=== PATIENT | female | born 1970 | race Caucasian/White ===

== ENCOUNTER 2025-06-26 22:45 | Inpatient (IN) | payer OTHER, MEDICAID ==
[~2025-06-26] VITALS: Ht 162.6 cm; Wt 75.3 kg
[2025-06-26 22:48] VITALS: O2SAT 95
[2025-06-26] MEDS ORDERED: ESCI5SOL2 PO (23:02)
[2025-06-26] MEDS ORDERED: CARB-214 PO (23:02)
[2025-06-26] MEDS ORDERED: ARIP10TA86 PO (23:02)
[2025-06-26] MEDS ORDERED: PHEN50TA MT (23:02)
[2025-06-26] MEDS ORDERED: LEVE100023 MT (23:02)
[2025-06-27] MEDS: SODIUM CHLORIDE 0.9% 1,000 ML IV ONE (00:03)
[2025-06-27] MEDS: LEVETIRACETAM 1000MG PREMIX 100 ML IV ONE (00:03)
[2025-06-27 00:04] LABS: BASOPHILS % 0.3 % (0.0-2.0); EOSINOPHILS % 0.3 % (0.0-5.0); HEMATOCRIT. 37.8 % (36.0-48.0); HEMOGLOBIN. 12.5 g/dL (12.0-16.0); LYMPHOCYTES % 26.2 % (20.0-50.0); MEAN PLATELET VOLUME 7.5 fl (7.4-10.4); MONOCYTES % 6.8 % (2.0-8.0); NEUTROPHILS % 66.4 % (40.0-76.0); PLATELET 248 x1000/uL (130-400); RED BLOOD CELL COUNT 3.99 mill/uL (4.2-5.4); RED CELL DISTRIBUTION WIDTH 13.2 % (11.6-14.6)
[2025-06-27] MEDS: ONDANSETRON HCL 4MG/2ML INJ IV ONE (00:04)
[2025-06-27 00:15] LABS: CARBAMAZEPINE 4.5 ug/mL (4-12); CREATININE 0.6 mg/dL (0.6-1.0); UREA NITROGEN BLOOD 11 mg/dL (9-23)
[2025-06-27 00:16] LABS: PHENYTOIN 2.9 ug/mL (10-20)
[2025-06-27 00:17] LABS: ASPARTATE AMINOTRANSFERASE 18 IU/L (<34); BILIRUBIN DIRECT < 0.1 mg/dL (<=3.0); PROTEIN TOTAL 7.1 g/dL (6.0-8.3)
[2025-06-27 00:18] LABS: BILIRUBIN TOTAL 0.3 mg/dL (0.1-1.0)
[2025-06-27 00:23] LABS: VALPROIC ACID < 3.0 ug/mL (50-100)
[2025-06-27 00:32] LABS: CLARITY URINE CLEAR (CLEAR); COLOR URINE YELLOW (YELLOW); GLUCOSE URINE NEGATIVE (NEGATIVE); KETONES URINE NEGATIVE (NEGATIVE); LEUKOCYTE ESTERASE URINE NEGATIVE (NEGATIVE); NITRITE URINE NEGATIVE (NEGATIVE); OCCULT BLOOD URINE NEGATIVE (NEGATIVE); PH URINE 7.0 (4.5-8.0); PROTEIN URINE NEGATIVE (NEGATIVE); SPECIFIC GRAVITY URINE 1.007 (1.005-1.030); UROBILINOGEN URINE 0.2 E.U./dL (0.2-1.0)
[2025-06-27 00:53] LABS: *AMPHETAMINES SCREEN URINE NEGATIVE (NEGATIVE); *BARBITURATES SCREEN URINE NEGATIVE (NEGATIVE); *BENZODIAZEPINES SCREEN URINE NEGATIVE (NEGATIVE); *COCAINE SCREEN URINE NEGATIVE (NEGATIVE); METHADONE URINE SCREEN NEGATIVE (NEGATIVE)
[2025-06-27 00:54] LABS: CANNABINOID URINE SCREEN NEGATIVE (NEGATIVE); ECSTASY MDMA SCREEN URINE NEGATIVE (NEGATIVE); OPIATES URINE SCREEN NEGATIVE (NEGATIVE); PHENCYCLIDINE URINE SCREEN NEGATIVE (NEGATIVE)
[2025-06-27 03:00] VITALS: BP 102/67; PULSE 63; RESP 19; TEMP 36.4736
[2025-06-27] MEDS ORDERED: IPRATROPIUM/ALBUTEROL 0.5-3(2.5)MG/3ML NEB HHN PRN (04:00)
[2025-06-27] MEDS ORDERED: ONDANSETRON HCL 4MG/2ML INJ IV PRN (04:00)
[2025-06-27] MEDS: THIAMINE HCL 100MG TABLET PO SCH (07:55)
[2025-06-27 08:02] VITALS: BP 92/56; PULSE 65; RESP 19; TEMP 36.2; O2SAT 98
[2025-06-27] MEDS: ENOXAPARIN 40MG/0.4ML SYR SUBCUT SCH (09:32)
[2025-06-27 11:58] VITALS: BP 101/49; PULSE 71; RESP 18; TEMP 36.2; O2SAT 95
[2025-06-27] MEDS: CARBAMAZEPINE 200MG TABLET PO SCH (13:53)
[2025-06-27] MEDS: LEVETIRACETAM 500MG TABLET PO SCH (13:53)
[2025-06-27 16:14] VITALS: BP 103/49; PULSE 63; RESP 18; TEMP 36.3; O2SAT 100
[2025-06-27 20:00] VITALS: BP 91/55; PULSE 67; RESP 19; TEMP 36.9; O2SAT 100
[2025-06-27] MEDS ORDERED: PHENYTOIN MT SCH (21:00)
[2025-06-27] MEDS: MELATONIN 3MG TABLET PO SCH (21:42)
[2025-06-27] MEDS: PHENYTOIN 100 MG/4 ML UDC PO SCH (21:49)
[2025-06-28] VITALS: BP 102/59; PULSE 52; RESP 18; TEMP 36.4; O2SAT 95
[2025-06-28 04:00] VITALS: BP 120/58; PULSE 59; RESP 18; TEMP 36.3; O2SAT 97
[2025-06-28 08:00] VITALS: BP 115/74; PULSE 65; RESP 16; TEMP 36.8; O2SAT 99
[2025-06-28] MEDS: ARIPIPRAZOLE 5MG TABLET PO SCH (09:06)
[2025-06-28 10:44] LABS: CREATININE 0.6 mg/dL (0.6-1.0)
[2025-06-28 10:45] LABS: UREA NITROGEN BLOOD 8 mg/dL (9-23)
[2025-06-28 10:46] LABS: T4 FREE 0.83 ng/dL (0.89-1.76)
[2025-06-28 10:47] LABS: PHOSPHORUS 3.3 mg/dL (2.5-4.9)
[2025-06-28] MEDS ORDERED: CARB-214 PO (11:31)
[2025-06-28] MEDS ORDERED: ARIP10TA86 PO (11:31)
[2025-06-28] MEDS ORDERED: ESCI5SOL2 PO (11:31)
[2025-06-28] MEDS ORDERED: LEVE100023 MT (11:31)
[2025-06-28] MEDS ORDERED: PHEN50TA MT (11:31)
[2025-06-28 12:00] VITALS: BP 112/71; PULSE 60; RESP 18; TEMP 36.7; O2SAT 98
[2025-06-28 16:00] VITALS: BP 100/53; PULSE 65; RESP 18; TEMP 36.4; O2SAT 95
[2025-06-28 19:27] LABS: BASOPHILS % 0.3 % (0.0-2.0); EOSINOPHILS % 0.9 % (0.0-5.0); HEMATOCRIT. 36.8 % (36.0-48.0); HEMOGLOBIN. 12.2 g/dL (12.0-16.0); LYMPHOCYTES % 40.8 % (20.0-50.0); MEAN PLATELET VOLUME 7.7 fl (7.4-10.4); MONOCYTES % 6.8 % (2.0-8.0); NEUTROPHILS % 51.2 % (40.0-76.0); PLATELET 233 x1000/uL (130-400); RED BLOOD CELL COUNT 3.79 mill/uL (4.2-5.4); RED CELL DISTRIBUTION WIDTH 13.3 % (11.6-14.6)
[2025-06-28 20:00] VITALS: BP 108/59; PULSE 68; RESP 18; TEMP 36.7; O2SAT 96
[2025-06-29] VITALS: BP 101/62; PULSE 66; RESP 19; TEMP 36.6; O2SAT 97
[2025-06-29 04:00] VITALS: BP 111/59; PULSE 66; RESP 19; TEMP 36.8; O2SAT 97
[2025-06-29 08:00] VITALS: BP 98/57; PULSE 62; RESP 18; TEMP 36.6; O2SAT 97
[2025-06-29] MEDS ORDERED: PHEN50TA MT (11:52)
[2025-06-29] MEDS ORDERED: ESCI5TAB MT (11:52)
[2025-06-29 12:00] VITALS: BP 103/56; PULSE 63; RESP 20; TEMP 36.2; O2SAT 96
[2025-06-29 13:05] VITALS: BP 103/56; PULSE 63; RESP 21; TEMP 97.1
== END 2025-06-29 14:54 | disposition home or self-care (01) | DRG 101 ==
LOC: ER 22:45 → 7WST 06-27 01:14 → EDBEDREQ 06-27 01:17 → EDBEDREQTM 06-27 01:17 → EDBEDREQDT 06-27 01:17 → ENRESERV 06-27 01:59
PROVIDERS: ADMIT Student in an Organized Health Care Education/Training Program; ATTEND Student in an Organized Health Care Education/Training Program
DX: G40.909 Epilepsy, unspecified, not intractable, without status epilepticus (principal); Z59.00 Homelessness unspecified; B69.0 Cysticercosis of central nervous system; E83.51 Hypocalcemia; F32.A Depression, unspecified; F41.9 Anxiety disorder, unspecified; Z91.148 Patient's other noncompliance with medication regimen for other reason; Z79.899 Other long term (current) drug therapy
CPT/HCPCS: 36415; 71045; 80048; 80076; 80156; 80165; 80185; 80305; 80320; 81003; 82550; 83735; 84100; 84439; 84443; 85025; 93005; 94640; 99291; J1650; J1953; J2405; J7030; G0480